=== PATIENT | male | born 1960 | race Caucasian/White ===

== ENCOUNTER 2017-03-07 08:02 | Inpatient (IN) | payer SELFPAY ==
[2017-03-07 08:07] VITALS: BMI 25.8
[2017-03-07] MEDS ORDERED: Morphine 4 MG/ML VIAL ONE (08:10)
--- NOTE | 2017-03-07 08:13 | C.PDOC ---
History Of Present Illness Patient BIBA for suddeon onset of crushing, substernal chest pain that began approx 1 hour [employer]. Patient given ASA PO and 1 SL nitro in the field. EKG done in the field shows ST elevations in II, III, aVL, V3-V6. Patient is a smoker, but has no physician and denies h/o HTN, hyperlipidemia, WI, DM. Time Seen by Provider: 03/07/17 08:11 Chief Complaint (Nursing): Chest Pain History Per: Patient, EMS History/Exam Limitations: language barrier (iraqi) Onset/Duration Of Symptoms: Hrs Current Symptoms Are (Timing): Still Present Severity: Moderate Quality: Pressure, Other (crushing) Associated Symptoms: Diaphoresis Past Medical History Reviewed: Historical Data, Nursing Documentation, Vital Signs Vital Signs: Last Vital Signs Temp 97.2 F L 03/09/17 16:30 Pulse 83 03/09/17 02:00 Resp 26 H 03/09/17 16:31 BP 149/91 H 03/09/17 02:00 Pulse Ox 96 03/09/17 16:31 - Medical History PMH: No Chronic Diseases Family History: States: No Known Family Hx Review Of Systems Except As Marked, All Systems Reviewed And Found Negative. Constitutional: Negative for: Fever, Chills Cardiovascular: Positive for: Chest Pain. Negative for: Palpitations, Orthopnea Respiratory: Negative for: Cough, Shortness of Breath Gastrointestinal: Negative for: Nausea, Vomiting, Abdominal Pain Physical Exam - Physical Exam Appears: Non-toxic, In Acute Distress (in moderate pain), Other (diaphoretic) Eye(s): bilateral: Normal Inspection Oral Mucosa: Moist Chest: Symmetrical Cardiovascular: Rhythm Regular Respiratory: Normal Breath Sounds, No Rales, No Rhonchi, No Wheezing Gastrointestinal/Abdominal: Normal Exam, Bowel Sounds, Soft, No Tenderness Extremity: Normal ROM, No Pedal Edema, No Calf Tenderness Pulses: Left Dorsalis Pedis: Normal, Right Dorsalis Pedis: Normal Neurological/Psych: Oriented x3 ED Course And Treatment - Laboratory Results Result Diagrams: 03/09/17 06:15 03/09/17 06:15 ECG: Interpreted By Me, Viewed By Me (sinus bradycardia 57 bpm, normal axis, ST elevations in V2-V4) ECG Interpretation: Abnormal O2 Sat by Pulse Oximetry: 100 (RA) Pulse Ox Interpretation: Normal Progress Note: Code heart called when EKG arrived via [facility]. Spoke with Dr. Estrella, he is en route to hospital now, agrees with code heart activation. Patient given Brilinta 180mg PO, Heparin 5000 units bolus, IV morphine for pain. - Physician Consult Information Physician Contacted: Eber Trevizo Disposition - Disposition Disposition: HOSPITALIZED Disposition Time: 08:10 Condition: GUARDED - Clinical Impression Clinical Impression: Acute ST-elevation myocardial infarction Decision To Admit - Pt Status Changed To: Hospital Disposition Of: Inpatient - Admit Certification Admit to Inpatient:: After my assessment, the patient will require hospitalization for at least two midnights. This is because of the severity of symptoms shown, intensity of services needed, and/or the medical risk in this patient being treated as an outpatient. - InPatient: Physician Admission Certification: I certify that this patient requires 2 or more midnights of care for the following reason:: see notes - . Bed Request Type: ICU Admitting Physician: Eber Trevizo Patient Diagnosis: Acute ST-elevation myocardial infarction
[2017-03-07] MEDS ORDERED: Midazolam 2 MG/2 ML VIAL ONE ×2 (08:19→09:01)
[2017-03-07] MEDS ORDERED: Iodixanol 320 MG/ML 200 ML BOTTLE IV ONE (08:20)
[2017-03-07] MEDS ORDERED: Iodixanol 320 MG/ML 100 ML BOTTLE IV ONE ×2 (08:20→08:44)
[2017-03-07 08:27] LABS: BASO % 0.5 % (0.0-2.0); EOS # 0.1 K/uL (0.0-0.7); EOS % 1.8 % (0.0-4.0); HEMATOCRIT 46.5 % (35.0-51.0); LYMPH # 1.6 K/uL (1.0-4.3); LYMPH % 20.9 % (20.0-40.0); MEAN CELL VOLUME 93.5 fL (80.0-94.0); MEAN CORPUSCULAR HEMOGLOBIN 31.7 pg (27.0-31.0); MEAN CORPUSCULAR HGB CONC 33.9 g/dL (33.0-37.0); MEAN PLATELET VOLUME 7.5 fL (7.2-11.7); MONO # 0.4 K/uL (0.0-0.8); MONO % 5.4 % (0.0-10.0); RED CELL DISTRIBUTION WIDTH 13.4 % (11.5-14.5); WHITE BLOOD COUNT 7.5 K/uL (4.8-10.8)
[2017-03-07] MEDS ORDERED: EPINEPHrine 1 mg/ml (1:1000) Inj ONE (08:27)
[2017-03-07 08:30] LABS: CHLORIDE 106 mmol/L (98-107); POTASSIUM 4.2 mmol/L (3.6-5.2); SODIUM 142 mmol/L (132-148)
[2017-03-07] MEDS ORDERED: Phenylephrine 10 mg/ml Inj ONE (08:31)
[2017-03-07 08:32] LABS: BILIRUBIN,TOTAL 0.8 mg/dL (0.2-1.3); CARBON DIOXIDE 21 mmol/L (22-30); GFR AFRICAN-AMERICAN > 60
[2017-03-07 08:33] LABS: ALB/GLOB RATIO 1.5 (1.0-2.1); ALKALINE PHOSPHATASE 108 U/L (38-126); ALT/SGPT 111 U/L (21-72); AST/SGOT 63 U/L (17-59); BLOOD UREA NITROGEN 17 mg/dL (9-20); GLUCOSE,RANDOM 189 mg/dL (75-110); TOTAL PROTEIN 7.7 g/dL (6.3-8.3)
[2017-03-07 08:34] LABS: INR 0.9
[2017-03-07] MEDS ORDERED: Heparin25000 units/250ml 1/2NS 25,000 UNITS/250 ML BAG IV ONE (08:40)
[2017-03-07] MEDS ORDERED: Sodium Chloride 0.9% 1,000 ML IV SCH (09:30)
--- NOTE | 2017-03-07 09:59 | CP.PCM.CON ---
<Beatris Franco - Last Filed: 03/07/17 13:58> History of Present Illness - History of Present Illness History of Present Illness: Critical Care Note HPI: 56M with no significant PMHx presented to the ED as a CODE Heart. 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 He has not been feeling well for the past 2-3 days. Pt was febrile, fatigued but did not go to the ED or see a PMD. This morning he reported chest pain (1 hour prior to arrival) to his helper and the ambulance was called. He was given ASA and 1 sublingual nitro in the field. EKG showed ST elevations in II, III, aVL, V3-V6. Patient went for cardiac cath showing LAD occlusion requiring 3 stents. Patient admitted to the ICU for close monitoring. PMHx: Denied PSHx: Denied Meds: Denied All: Seasonal SHx: Admits to smoking heavily, social alcohol use, no ilicit drug use FHx: Unremarkable PMD: Unknown Past Patient History - Past Social History Smoking Status: Current Some Days Smoker - PSYCHIATRIC Hx Substance Use: No - SURGICAL HISTORY Hx Surgeries: No - ANESTHESIA Hx Anesthesia: No Meds Allergies/Adverse Reactions: Allergies Allergy/AdvReac Type Severity Reaction Status Date / Time seasonal Allergy CONGESTION Uncoded 03/07/17 08:17 - Medications Medications: Current Medications Aspirin (Ecotrin) 81 mg PO DAILY [facility] Nitroglycerin/Dextrose (Nitroglycerin 50 Mg/250 Ml D5w) 50 mg in 250 mls @ 1.5 mls/hr IV .Q24H RIA; 5 MCG/MIN PRN Reason: Protocol Sodium Chloride (Sodium Chloride 0.9%) 1,000 mls @ 100 mls/hr IV .Q10H RIA Stop: 03/07/17 15:31 Lisinopril (Zestril) 5 mg PO DAILY RIA Metoprolol Tartrate (Lopressor) 25 mg PO BID RIA Rosuvastatin Calcium (Crestor) 10 mg PO HS RIA Ticagrelor (Brilinta) 90 mg PO BID RIA Physical Exam - Constitutional Appears: No Acute Distress - Head Exam Head Exam: NORMAL INSPECTION, NORMOCEPHALIC - Eye Exam Eye Exam: Normal appearance Pupil Exam: NORMAL ACCOMODATION - ENT Exam ENT Exam: Mucous Membranes Moist - Respiratory Exam Respiratory Exam: Clear to Auscultation Bilateral, NORMAL BREATHING PATTERN. absent: Wheezes - Cardiovascular Exam Cardiovascular Exam: REGULAR RHYTHM, RRR, +S1, +S2 - GI/Abdominal Exam GI & Abdominal Exam: Normal Bowel Sounds, Soft. absent: Distended, Tenderness - Extremities Exam Extremities exam: Positive for: normal inspection, pedal pulses present. Negative for: pedal edema, tenderness - Neurological Exam Neurological exam: Alert, Oriented x3 - Skin Skin Exam: Dry, Intact, Normal Color, Warm Results - Vital Signs Recent Vital Signs: Last Vital Signs Temp 97.9 F 03/07/17 08:05 Pulse 60 03/07/17 08:05 Resp 16 03/07/17 08:05 BP 189/115 H 03/07/17 08:05 Pulse Ox 100 03/07/17 08:17 - Labs Result Diagrams: 03/07/17 08:15 03/07/17 08:15 Labs: Laboratory Results - last 24 hr 03/07/17 03/07/17 03/07/17 08:15 08:15 08:15 WBC 7.5 RBC 4.97 Hgb 15.8 Hct 46.5 MCV 93.5 MCH 31.7 H MCHC 33.9 RDW 13.4 Plt Count 277 MPV 7.5 Neut % (Auto) 71.4 Lymph % (Auto) 20.9 Calloway % (Auto) 5.4 Eos % (Auto) 1.8 Baso % (Auto) 0.5 Neut # 5.3 Lymph # 1.6 Calloway # 0.4 Eos # 0.1 Baso # 0.0 PT 10.0 INR 0.9 APTT 31 Sodium 142 Potassium 4.2 Chloride 106 Carbon Dioxide 21 L Anion Gap 19 BUN 17 Creatinine 0.8 Est GFR ( Amer) > 60 Est GFR (Non-Af Amer) > 60 Random Glucose 189 H Calcium 10.0 Total Bilirubin 0.8 AST 63 H ALT 111 H Alkaline Phosphatase 108 Troponin I Total Protein 7.7 Albumin 4.6 Globulin 3.1 Albumin/Globulin Ratio 1.5 Blood Type Antibody Screen 03/07/17 03/07/17 08:15 08:15 WBC RBC Hgb Hct MCV MCH MCHC RDW Plt Count MPV Neut % (Auto) Lymph % (Auto) Calloway % (Auto) Eos % (Auto) Baso % (Auto) Neut # Lymph # Calloway # Eos # Baso # PT INR APTT Sodium Potassium Chloride Carbon Dioxide Anion Gap BUN Creatinine Est GFR ( Amer) Est GFR (Non-Af Amer) Random Glucose Calcium Total Bilirubin AST ALT Alkaline Phosphatase Troponin I 0.1290 H* Total Protein Albumin Globulin Albumin/Globulin Ratio Blood Type O POSITIVE Antibody Screen Negative Assessment & Plan - Assessment and Plan (Free Text) Assessment: 56 M with PMHx of presented to the ED, as CODE HEART with ST elevations in II, III, aVL, V3-V6 on EKG. Cardiac Cath for STEMI. Plan: Chest pain * STEMI * EKG: showed ST elevations in II, III, aVL, V3-V6. 1st troponin 52.2. Patient went for cardiac cath showing LAD occlusion requiring 3 stents. * ASA 81mg PO daily, Brilinta 90 mg PO BID, Crestor 10mg PO QHS, Nitro Drip, NS @ 100cc/hr * F/U ECHO * F/U ANA x2 * F/U HgA1C, lipid panel, TSH, T4 HTN * Started Lopressor 25mg PO BID, Hydralazine 25mg PO TID, Lisinopril 10mg PO daily Prophylactic Measures * GI PPX: Pepcid 20mg PO daily * DVT PPX: Heparin 5000 Q8H * Heart Healthy Diet DW Joan Antoine DO, PGY-1 <Deepak Mobley S - Last Filed: 03/07/17 18:32> Meds - Medications Medications: Current Medications Aspirin (Ecotrin) 81 mg PO DAILY [facility] Famotidine (Pepcid) 20 mg PO DAILY [facility] Heparin Sodium (Porcine) (Heparin) 5,000 units SC Q8 [facility] Hydralazine HCl (Apresoline) 25 mg PO TID [facility] Last Admin: 03/07/17 18:05 Dose: 25 mg Nitroglycerin/Dextrose (Nitroglycerin 50 Mg/250 Ml D5w) 50 mg in 250 mls @ 1.5 mls/hr IV .Q24H RIA; 5 MCG/MIN PRN Reason: Protocol Lisinopril (Zestril) 10 mg PO DAILY [facility] Metoprolol Tartrate (Lopressor) 25 mg PO BID [facility] Last Admin: 03/07/17 18:05 Dose: 25 mg Rosuvastatin Calcium (Crestor) 10 mg PO HS [facility] Ticagrelor (Brilinta) 90 mg PO BID RIA Results - Vital Signs Recent Vital Signs: Last Vital Signs Temp 97.5 F L 03/07/17 16:00 Pulse 152 H 03/07/17 16:00 Resp 18 03/07/17 16:00 BP 169/102 H 03/07/17 18:05 Pulse Ox 97 03/07/17 16:00 - Labs Result Diagrams: 03/07/17 08:15 03/07/17 08:15 Labs: Laboratory Results - last 24 hr 03/07/17 03/07/17 03/07/17 08:15 08:15 08:15 WBC 7.5 RBC 4.97 Hgb 15.8 Hct 46.5 MCV 93.5 MCH 31.7 H MCHC 33.9 RDW 13.4 Plt Count 277 MPV 7.5 Neut % (Auto) 71.4 Lymph % (Auto) 20.9 Calloway % (Auto) 5.4 Eos % (Auto) 1.8 Baso % (Auto) 0.5 Neut # 5.3 Lymph # 1.6 Calloway # 0.4 Eos # 0.1 Baso # 0.0 PT 10.0 INR 0.9 APTT 31 Sodium 142 Potassium 4.2 Chloride 106 Carbon Dioxide 21 L Anion Gap 19 BUN 17 Creatinine 0.8 Est GFR ( Amer) > 60 Est GFR (Non-Af Amer) > 60 Random Glucose 189 H Calcium 10.0 Total Bilirubin 0.8 AST 63 H ALT 111 H Alkaline Phosphatase 108 Troponin I Total Protein 7.7 Albumin 4.6 Globulin 3.1 Albumin/Globulin Ratio 1.5 Blood Type Antibody Screen 03/07/17 03/07/17 03/07/17 08:15 08:15 10:25 WBC RBC Hgb Hct MCV MCH MCHC RDW Plt Count MPV Neut % (Auto) Lymph % (Auto) Calloway % (Auto) Eos % (Auto) Baso % (Auto) Neut # Lymph # Calloway # Eos # Baso # PT INR APTT Sodium Potassium Chloride Carbon Dioxide Anion Gap BUN Creatinine Est GFR ( Amer) Est GFR (Non-Af Amer) Random Glucose Calcium Total Bilirubin AST ALT Alkaline Phosphatase Troponin I 0.1290 H* 52.2000 H* Total Protein Albumin Globulin Albumin/Globulin Ratio Blood Type O POSITIVE Antibody Screen Negative Attending/Attestation - Attestation I have personally seen and examined this patient.: Yes I have fully participated in the care of the patient.: Yes I have reviewed all pertinent clinical information: Yes Notes (Text): 03/07/17 18:27 Patient seen and examined 56-year-old male presented with ST elevation PA, cardiac cath showing LAD occlusion requiring 3 stents. Patient admitted to the ICU for close monitoring. Continue the BRILINTA, aspirin, Crestor, on nitro drip and started on Lopressor and hydralazine for hypertension
[2017-03-07] MEDS: Nitroglycerin 50mg in D5W 50 MG/250 ML BOTTLE IV SCH ×2 (10:00→20:00)
--- NOTE | 2017-03-07 13:10 | CARD ---
APPROVED REPORT EXAM: Two-dimensional and M-mode echocardiogram with Doppler and color Doppler. Other Information Quality : ExcellentGoodRhythm : NSR INDICATION CVA/TIA RISK FACTORS Diabetes M-Mode DIMENSIONS RVDd1.44 (2.1-3.2cm)Left Atrium (MM)3.12 (2.5-4.0cm) IVSd1.02 (0.7-1.1cm)Aortic Root3.79 (2.2-3.7cm) LVDd4.45 (4.0-5.6cm)Aortic Cusp Exc.1.87 (1.5-2.0cm) PWd0.90 (0.7-1.1cm)FS (%) 25 % LVDs3.36 (2.0-3.8cm)LVEF (%)49 (>50%) Aortic Valve AoV Peak Vgpdtjhu028.8cm/Sasha Peak GR.13mmHg Mitral Valve MV E Fafacots56.1cm/sMV A Mwamsavs51.8cm/sE/A ratio1.4 TDI E/Lateral E'0.0E/Medial E'0.0 Tricuspid Valve TR Peak Fayqiijr140gp/sTR Peak [id number] <Conclusion> normal size la,lv & ra rv. lvef of about 50%. normal diastolic filling. normal aortic,mitral,tv & pv. trace mr,pi & mild tr with normal pulmonary systolic pressures of 30 mm of hg. no pericardial effusion. normal size aortic root.
--- NOTE | 2017-03-07 14:23 | RAD ---
HISTORY: Acute STEMI COMPARISON: None available. TECHNIQUE: Chest, one view. FINDINGS: Examination limited by habitus. External defibrillator pad projects over the left upper quadrant. LUNGS: Mild pulmonary venous congestion. Please note that chest x-ray has limited sensitivity for the detection of pulmonary masses. PLEURA: No significant pleural effusion identified. No definite pneumothorax . CARDIOVASCULAR: Cardiomegaly. OSSEOUS STRUCTURES: No acute osseous abnormality identified. VISUALIZED UPPER ABDOMEN: Unremarkable. OTHER FINDINGS: None. IMPRESSION: Cardiomegaly. Mild pulmonary venous congestion.
[2017-03-07] MEDS ORDERED: Morphine 4 MG/ML VIAL IV ONE (19:48)
[2017-03-08] MEDS: Nitroglycerin 50mg in D5W 50 MG/250 ML BOTTLE IV SCH ×3 (01:02→10:48)
[2017-03-08 06:42] LABS: BASO % 0.4 % (0.0-2.0); CHLORIDE 103 mmol/L (98-107); EOS # 0.1 K/uL (0.0-0.7); EOS % 0.9 % (0.0-4.0); HEMATOCRIT 41.6 % (35.0-51.0); LYMPH # 1.8 K/uL (1.0-4.3); LYMPH % 15.9 % (20.0-40.0); MEAN CELL VOLUME 95.7 fL (80.0-94.0); MEAN CORPUSCULAR HEMOGLOBIN 31.8 pg (27.0-31.0); MEAN CORPUSCULAR HGB CONC 33.3 g/dL (33.0-37.0); MEAN PLATELET VOLUME 7.5 fL (7.2-11.7); MONO # 0.8 K/uL (0.0-0.8); MONO % 7.5 % (0.0-10.0); POTASSIUM 3.8 mmol/L (3.6-5.2); RED CELL DISTRIBUTION WIDTH 13.9 % (11.5-14.5); SODIUM 137 mmol/L (132-148); WHITE BLOOD COUNT 11.3 K/uL (4.8-10.8)
[2017-03-08 06:44] LABS: ALB/GLOB RATIO 1.3 (1.0-2.1); AST/SGOT 291 U/L (17-59); BLOOD UREA NITROGEN 15 mg/dL (9-20); CARBON DIOXIDE 24 mmol/L (22-30); CHOLESTEROL 216 mg/dL (0-199); GFR AFRICAN-AMERICAN > 60; TOTAL PROTEIN 6.3 g/dL (6.3-8.3)
[2017-03-08 06:45] LABS: ALKALINE PHOSPHATASE 70 U/L (38-126); ALT/SGPT 110 U/L (21-72); CALCIUM 8.3 mg/dl (8.6-10.4); GLUCOSE,RANDOM 132 mg/dL (75-110); MAGNESIUM 1.7 mg/dL (1.6-2.3); PHOSPHOROUS 3.2 mg/dL (2.5-4.5)
--- NOTE | 2017-03-08 08:46 | CP.CCUPN ---
Addendum entered and electronically signed by Beatris Franco DO 03/08/17 13:00 : NITRO DRIP DC Continue Metoprolol 50mg PO BID, lisinoprol 10mg PO daily. Hydralazine was DC. Patient downgraded to TELEMETRY Original Note: <Beatris Franco - Last Filed: 03/08/17 11:11> CCU Subjective - Physician Review Subjective (Free Text): Patient was seen and examined at bedside. Last night patient reported chest pain. Dr. La was called, requested nitro drip be restarted. Patient received morphine and his chest pain resolved. Patient is tolerating diet, currently on Lopressor, hydrazaline, and nitro drip. Reports no chest pain. CCU Objective - Vital Signs / Intake & Output Vital Signs (Last 4 hours): Vital Signs Pulse Resp BP Pulse Ox 03/08/17 07:00 62 16 143/86 95 03/08/17 06:00 70 19 134/80 96 03/08/17 05:17 62 26 H 115/72 96 03/08/17 05:00 67 17 126/86 96 Intake and Output (Last 8hrs): Intake & Output 03/07/17 03/08/17 03/08/17 22:59 06:59 14:59 Intake Total 806 1089 3 Output Total 400 600 Balance 406 489 3 Weight 202 lb 4 oz Intake: IV 500 Intake, IV Amount 436 39 3 Left Wrist 136 39 3 Right Antecubital 0 tight wrist 300 Oral 370 550 Output: Urine 400 600 Urine, Voided 400 600 Other: # Bowel Movements 0 - Physical Exam Head: Positive for: Atraumatic, Normocephalic Pupils: Positive for: PERRL Extroacular Muscles: Positive for: EOMI Mouth: Positive for: Moist Mucous Membranes Respiratory/Chest: Positive for: Clear to Auscultation Cardiovascular: Positive for: Regular Rate and Rhythm, Normal S1, S2 Abdomen: Positive for: Normal Bowel Sounds. Negative for: Tenderness, Distention Upper Extremity: Positive for: Normal Inspection, NORMAL PULSES. Negative for: Cyanosis, Edema Lower Extremity: Positive for: Normal Inspection, NORMAL PULSES. Negative for: Edema, CALF TENDERNESS Neurological: Positive for: GCS=15, CN II-XII Intact Skin: Positive for: Warm, Dry, Normal Color Psychiatric: Positive for: Alert, Oriented x 3 - Medications Active Medications: Active Medications Generic Name Dose Route Start Last Admin Trade Name Freq PRN Reason Stop Dose Admin Acetaminophen 650 mg 03/07/17 21:09 03/08/17 05:16 Tylenol 325mg Tab PO 650 mg Q6 PRN Administration Headache Aspirin 81 mg 03/08/17 10:00 Ecotrin PO DAILY [facility] Famotidine 20 mg 03/08/17 10:00 Pepcid PO DAILY [facility] Heparin Sodium (Porcine) 5,000 units 03/08/17 10:00 Heparin SC Q8 [facility] Hydralazine HCl 25 mg 03/07/17 14:00 03/07/17 18:05 Apresoline PO 25 mg TID RIA Administration Nitroglycerin/Dextrose 50 mg in 250 mls @ 1.5 mls/hr 03/07/17 08:45 03/08/17 05: Nitroglycerin 50 Mg/250 Ml D5w IV 10 mcg/min .Q24H RIA 3 mls/hr Protocol Administration 5 MCG/MIN Lisinopril 10 mg 03/08/17 10:00 Zestril PO DAILY [facility] Metoprolol Tartrate 25 mg 03/07/17 10:00 03/07/17 18:05 Lopressor PO 25 mg BID RIA Administration Rosuvastatin Calcium 10 mg 03/07/17 22:00 03/07/17 22:01 Crestor PO 10 mg HS RIA Administration Ticagrelor 90 mg 03/08/17 10:00 Brilinta PO BID [facility] - Patient Studies Lab Studies: Lab Studies 03/08/17 03/08/17 03/08/17 Range/Units 06:24 06:24 06:24 WBC 11.3 H D (4.8-10.8) K/uL RBC 4.35 L (4.40-5.90) Mil/uL Hgb 13.8 D (12.0-18.0) g/dL Hct 41.6 (35.0-51.0) % MCV 95.7 H D (80.0-94.0) fL MCH 31.8 H (27.0-31.0) pg MCHC 33.3 (33.0-37.0) g/dL RDW 13.9 (11.5-14.5) % Plt Count 232 (130-400) K/uL MPV 7.5 (7.2-11.7) fL Neut % (Auto) 75.3 H (50.0-75.0) % Lymph % (Auto) 15.9 L (20.0-40.0) % Daggett % (Auto) 7.5 (0.0-10.0) % Eos % (Auto) 0.9 (0.0-4.0) % Baso % (Auto) 0.4 (0.0-2.0) % Neut # 8.5 H (1.8-7.0) K/uL Lymph # 1.8 (1.0-4.3) K/uL Daggett # 0.8 (0.0-0.8) K/uL Eos # 0.1 (0.0-0.7) K/uL Baso # 0.0 (0.0-0.2) K/uL PT (9.7-12.2) SECONDS INR APTT (21-34) SECONDS Sodium 137 (132-148) mmol/L Potassium 3.8 (3.6-5.2) mmol/L Chloride 103 (98-107) mmol/L Carbon Dioxide 24 (22-30) mmol/L Anion Gap 13 (10-20) BUN 15 (9-20) mg/dL Creatinine 0.8 (0.8-1.5) MG/DL Est GFR ( Amer) > 60 Est GFR (Non-Af Amer) > 60 Random Glucose 132 H (75-110) mg/dL Hemoglobin A1c (4.2-6.5) % Calcium 8.3 L (8.6-10.4) mg/dl Phosphorus 3.2 (2.5-4.5) mg/dL Magnesium 1.7 (1.6-2.3) mg/dL Total Bilirubin 1.0 (0.2-1.3) mg/dL AST 291 H D (17-59) U/L ALT 110 H (21-72) U/L Alkaline Phosphatase 70 (38-126) U/L Total Creatine Kinase (55-170) U/L CK-MB (Mass) (0.0-3.38) ng/mL Troponin I 45.4000 H* (0.00-0.120) ng/mL Troponin I, Quant (0.00-0.120) ng/mL Total Protein 6.3 (6.3-8.3) g/dL Albumin 3.6 (3.5-5.0) g/dL Globulin 2.7 (2.2-3.9) gm/dL Albumin/Globulin Ratio 1.3 (1.0-2.1) Triglycerides 184 H (0-149) mg/dL Cholesterol 216 H (0-199) mg/dL LDL Cholesterol Direct 149 H (0-129) mg/dL HDL Cholesterol 43 (30-70) mg/dL Free T4 0.84 (0.78-2.19) ng/dL Blood Type Antibody Screen 03/08/17 03/07/17 03/07/17 Range/Units 06:24 18:24 10:25 WBC (4.8-10.8) K/uL RBC (4.40-5.90) Mil/uL Hgb (12.0-18.0) g/dL Hct (35.0-51.0) % MCV (80.0-94.0) fL MCH (27.0-31.0) pg MCHC (33.0-37.0) g/dL RDW (11.5-14.5) % Plt Count (130-400) K/uL MPV (7.2-11.7) fL Neut % (Auto) (50.0-75.0) % Lymph % (Auto) (20.0-40.0) % Daggett % (Auto) (0.0-10.0) % Eos % (Auto) (0.0-4.0) % Baso % (Auto) (0.0-2.0) % Neut # (1.8-7.0) K/uL Lymph # (1.0-4.3) K/uL Daggett # (0.0-0.8) K/uL Eos # (0.0-0.7) K/uL Baso # (0.0-0.2) K/uL PT (9.7-12.2) SECONDS INR APTT (21-34) SECONDS Sodium (132-148) mmol/L Potassium (3.6-5.2) mmol/L Chloride (98-107) mmol/L Carbon Dioxide (22-30) mmol/L Anion Gap (10-20) BUN (9-20) mg/dL Creatinine (0.8-1.5) MG/DL Est GFR ( Amer) Est GFR (Non-Af Amer) Random Glucose (75-110) mg/dL Hemoglobin A1c 5.4 (4.2-6.5) % Calcium (8.6-10.4) mg/dl Phosphorus (2.5-4.5) mg/dL Magnesium (1.6-2.3) mg/dL Total Bilirubin (0.2-1.3) mg/dL AST (17-59) U/L ALT (21-72) U/L Alkaline Phosphatase (38-126) U/L Total Creatine Kinase 5055 H (55-170) U/L CK-MB (Mass) 226 H (0.0-3.38) ng/mL Troponin I 52.2000 H* (0.00-0.120) ng/mL Troponin I, Quant 131.0000 H* (0.00-0.120) ng/mL Total Protein (6.3-8.3) g/dL Albumin (3.5-5.0) g/dL Globulin (2.2-3.9) gm/dL Albumin/Globulin Ratio (1.0-2.1) Triglycerides (0-149) mg/dL Cholesterol (0-199) mg/dL LDL Cholesterol Direct (0-129) mg/dL HDL Cholesterol (30-70) mg/dL Free T4 (0.78-2.19) ng/dL Blood Type Antibody Screen 03/07/17 03/07/17 03/07/17 Range/Units 08:15 08:15 08:15 WBC (4.8-10.8) K/uL RBC (4.40-5.90) Mil/uL Hgb (12.0-18.0) g/dL Hct (35.0-51.0) % MCV (80.0-94.0) fL MCH (27.0-31.0) pg MCHC (33.0-37.0) g/dL RDW (11.5-14.5) % Plt Count (130-400) K/uL MPV (7.2-11.7) fL Neut % (Auto) (50.0-75.0) % Lymph % (Auto) (20.0-40.0) % Daggett % (Auto) (0.0-10.0) % Eos % (Auto) (0.0-4.0) % Baso % (Auto) (0.0-2.0) % Neut # (1.8-7.0) K/uL Lymph # (1.0-4.3) K/uL Daggett # (0.0-0.8) K/uL Eos # (0.0-0.7) K/uL Baso # (0.0-0.2) K/uL PT 10.0 (9.7-12.2) SECONDS INR 0.9 APTT 31 (21-34) SECONDS Sodium (132-148) mmol/L Potassium (3.6-5.2) mmol/L Chloride (98-107) mmol/L Carbon Dioxide (22-30) mmol/L Anion Gap (10-20) BUN (9-20) mg/dL Creatinine (0.8-1.5) MG/DL Est GFR ( Amer) Est GFR (Non-Af Amer) Random Glucose (75-110) mg/dL Hemoglobin A1c (4.2-6.5) % Calcium (8.6-10.4) mg/dl Phosphorus (2.5-4.5) mg/dL Magnesium (1.6-2.3) mg/dL Total Bilirubin (0.2-1.3) mg/dL AST (17-59) U/L ALT (21-72) U/L Alkaline Phosphatase (38-126) U/L Total Creatine Kinase (55-170) U/L CK-MB (Mass) (0.0-3.38) ng/mL Troponin I 0.1290 H* (0.00-0.120) ng/mL Troponin I, Quant (0.00-0.120) ng/mL Total Protein (6.3-8.3) g/dL Albumin (3.5-5.0) g/dL Globulin (2.2-3.9) gm/dL Albumin/Globulin Ratio (1.0-2.1) Triglycerides (0-149) mg/dL Cholesterol (0-199) mg/dL LDL Cholesterol Direct (0-129) mg/dL HDL Cholesterol (30-70) mg/dL Free T4 (0.78-2.19) ng/dL Blood Type O POSITIVE Antibody Screen Negative Laboratory Results - last 24 hr 03/07/17 03/07/17 03/07/17 08:15 08:15 08:15 WBC RBC Hgb Hct MCV MCH MCHC RDW Plt Count MPV Neut % (Auto) Lymph % (Auto) Daggett % (Auto) Eos % (Auto) Baso % (Auto) Neut # Lymph # Daggett # Eos # Baso # PT 10.0 INR 0.9 APTT 31 Sodium Potassium Chloride Carbon Dioxide Anion Gap BUN Creatinine Est GFR ( Amer) Est GFR (Non-Af Amer) Random Glucose Hemoglobin A1c Calcium Phosphorus Magnesium Total Bilirubin AST ALT Alkaline Phosphatase Total Creatine Kinase CK-MB (Mass) Troponin I 0.1290 H* Troponin I, Quant Total Protein Albumin Globulin Albumin/Globulin Ratio Triglycerides Cholesterol LDL Cholesterol Direct HDL Cholesterol Free T4 Blood Type O POSITIVE Antibody Screen Negative 03/07/17 03/07/17 03/08/17 10:25 18:24 06:24 WBC RBC Hgb Hct MCV MCH MCHC RDW Plt Count MPV Neut % (Auto) Lymph % (Auto) Daggett % (Auto) Eos % (Auto) Baso % (Auto) Neut # Lymph # Daggett # Eos # Baso # PT INR APTT Sodium Potassium Chloride Carbon Dioxide Anion Gap BUN Creatinine Est GFR ( Amer) Est GFR (Non-Af Amer) Random Glucose Hemoglobin A1c 5.4 Calcium Phosphorus Magnesium Total Bilirubin AST ALT Alkaline Phosphatase Total Creatine Kinase 5055 H CK-MB (Mass) 226 H Troponin I 52.2000 H* Troponin I, Quant 131.0000 H* Total Protein Albumin Globulin Albumin/Globulin Ratio Triglycerides Cholesterol LDL Cholesterol Direct HDL Cholesterol Free T4 Blood Type Antibody Screen 03/08/17 03/08/17 03/08/17 06:24 06:24 06:24 WBC 11.3 H D RBC 4.35 L Hgb 13.8 D Hct 41.6 MCV 95.7 H D MCH 31.8 H MCHC 33.3 RDW 13.9 Plt Count 232 MPV 7.5 Neut % (Auto) 75.3 H Lymph % (Auto) 15.9 L Daggett % (Auto) 7.5 Eos % (Auto) 0.9 Baso % (Auto) 0.4 Neut # 8.5 H Lymph # 1.8 Daggett # 0.8 Eos # 0.1 Baso # 0.0 PT INR APTT Sodium 137 Potassium 3.8 Chloride 103 Carbon Dioxide 24 Anion Gap 13 BUN 15 Creatinine 0.8 Est GFR ( Amer) > 60 Est GFR (Non-Af Amer) > 60 Random Glucose 132 H Hemoglobin A1c Calcium 8.3 L Phosphorus 3.2 Magnesium 1.7 Total Bilirubin 1.0 AST 291 H D ALT 110 H Alkaline Phosphatase 70 Total Creatine Kinase CK-MB (Mass) Troponin I 45.4000 H* Troponin I, Quant Total Protein 6.3 Albumin 3.6 Globulin 2.7 Albumin/Globulin Ratio 1.3 Triglycerides 184 H Cholesterol 216 H LDL Cholesterol Direct 149 H HDL Cholesterol 43 Free T4 0.84 Blood Type Antibody Screen EKG/Cardiology Studies: Cardiology / EKG Studies 03/07/17 09:31 EKG [ELECTROCARDIOGRAM] Q8H Comment: With every troponin q8 x3 Mode Of Transportation: BED Reason For Exam: Acute STEMI 03/07/17 17:31 EKG [ELECTROCARDIOGRAM] Q8H Comment: With every troponin q8 x3 Mode Of Transportation: BED Reason For Exam: Acute STEMI 03/08/17 01:31 EKG [ELECTROCARDIOGRAM] Q8H Comment: With every troponin q8 x3 Mode Of Transportation: BED Reason For Exam: Acute STEMI Fingerstick Blood Sugar Results: 179 Critical Care Progress Note - Nutrition Nutrition: Nutrition Category Date Time Status Heart Healthy Diet [DIET] Diets 03/07/17 Dinner Active Assessment/Plan - Assessment and Plan (Free Text) Assessment: 56 M with PMHx of presented to the ED, as CODE HEART with ST elevations in II, III, aVL, V3-V6 on EKG. Cardiac Cath for STEMI. S/P 3 GENA stents in LAD. POD #1 Plan: Chest pain * STEMI * EKG: showed ST elevations in II, III, aVL, V3-V6. 1st troponin 52.2. Patient went for cardiac cath showing LAD occlusion requiring 3 GENA. * ASA 81mg PO daily, Brilinta 90 mg PO BID, Crestor 10mg PO QHS, Nitro Drip, NS @ 100cc/hr * ANA: 52.2, 131, 45 * HgA1C: 5.4 , lipid panel: Tri 184, Cholesterol 216, and LDL 149, TSH, T4 - WNL * ECHO: LVEF 50%, trace MR HTN * Started Lopressor 25mg PO BID, Hydralazine 25mg PO TID, and Nitro drip; Lisinopril 10mg PO daily - will hold Nitro drip Prophylactic Measures * GI PPX: Pepcid 20mg PO daily * DVT PPX: Heparin 5000 Q8H * Heart Healthy Diet DW Dr. Patten, Joan HAYNES, PGY-1 <Sandor Beaver - Last Filed: 03/08/17 13:56> CCU Objective - Vital Signs / Intake & Output Vital Signs (Last 4 hours): Vital Signs Temp Pulse Resp BP Pulse Ox 03/08/17 12:00 97.6 F 74 19 143/93 H 96 03/08/17 11:00 71 19 142/76 97 03/08/17 10:00 62 18 144/87 96 03/08/17 09:47 128/80 Intake and Output (Last 8hrs): Intake & Output 03/07/17 03/08/17 03/08/17 22:59 06:59 14:59 Intake Total 806 1089 214 Output Total 400 600 701 Balance 406 489 -487 Weight 202 lb 4 oz Intake: IV 500 50 Intake, IV Amount 436 39 9 Left Wrist 136 39 9 Right Antecubital 0 tight wrist 300 Oral 370 550 155 Output: Urine 400 600 700 Urine, Voided 400 600 700 Stool 1 Other: # Bowel Movements 0 - Medications Active Medications: Active Medications Generic Name Dose Route Start Last Admin Trade Name Freq PRN Reason Stop Dose Admin Acetaminophen 650 mg 03/07/17 21:09 03/08/17 05:16 Tylenol 325mg Tab PO 650 mg Q6 PRN Administration Headache Aspirin 81 mg 03/08/17 10:00 03/08/17 09:47 Ecotrin PO 81 mg DAILY RIA Administration Famotidine 20 mg 03/08/17 10:00 03/08/17 09:47 Pepcid PO 20 mg DAILY RIA Administration Heparin Sodium (Porcine) 5,000 units 03/08/17 10:00 03/08/17 09:48 Heparin SC 5,000 units Q8 RIA Administration Lisinopril 10 mg 03/09/17 10:00 Zestril PO DAILY RIA Metoprolol Tartrate 50 mg 03/08/17 18:00 Lopressor PO BID RIA Rosuvastatin Calcium 10 mg 03/07/17 22:00 03/07/17 22:01 Crestor PO 10 mg HS RIA Administration Ticagrelor 90 mg 03/08/17 10:00 03/08/17 09:47 Brilinta PO 90 mg BID RIA Administration - Patient Studies Lab Studies: Microbiology Studies 03/07/17 Unknown MRSA Culture (Admit) - Final Naris MRSA NOT DETECTED Lab Studies 03/08/17 03/08/17 03/08/17 Range/Units 06:24 06:24 06:24 WBC 11.3 H D (4.8-10.8) K/uL RBC 4.35 L (4.40-5.90) Mil/uL Hgb 13.8 D (12.0-18.0) g/dL Hct 41.6 (35.0-51.0) % MCV 95.7 H D (80.0-94.0) fL MCH 31.8 H (27.0-31.0) pg MCHC 33.3 (33.0-37.0) g/dL RDW 13.9 (11.5-14.5) % Plt Count 232 (130-400) K/uL MPV 7.5 (7.2-11.7) fL Neut % (Auto) 75.3 H (50.0-75.0) % Lymph % (Auto) 15.9 L (20.0-40.0) % Daggett % (Auto) 7.5 (0.0-10.0) % Eos % (Auto) 0.9 (0.0-4.0) % Baso % (Auto) 0.4 (0.0-2.0) % Neut # 8.5 H (1.8-7.0) K/uL Lymph # 1.8 (1.0-4.3) K/uL Daggett # 0.8 (0.0-0.8) K/uL Eos # 0.1 (0.0-0.7) K/uL Baso # 0.0 (0.0-0.2) K/uL Sodium 137 (132-148) mmol/L Potassium 3.8 (3.6-5.2) mmol/L Chloride 103 (98-107) mmol/L Carbon Dioxide 24 (22-30) mmol/L Anion Gap 13 (10-20) BUN 15 (9-20) mg/dL Creatinine 0.8 (0.8-1.5) MG/DL Est GFR ( Amer) > 60 Est GFR (Non-Af Amer) > 60 Random Glucose 132 H (75-110) mg/dL Hemoglobin A1c (4.2-6.5) % Calcium 8.3 L (8.6-10.4) mg/dl Phosphorus 3.2 (2.5-4.5) mg/dL Magnesium 1.7 (1.6-2.3) mg/dL Total Bilirubin 1.0 (0.2-1.3) mg/dL AST 291 H D (17-59) U/L ALT 110 H (21-72) U/L Alkaline Phosphatase 70 (38-126) U/L Total Creatine Kinase (55-170) U/L CK-MB (Mass) (0.0-3.38) ng/mL Troponin I 45.4000 H* (0.00-0.120) ng/mL Troponin I, Quant (0.00-0.120) ng/mL Total Protein 6.3 (6.3-8.3) g/dL Albumin 3.6 (3.5-5.0) g/dL Globulin 2.7 (2.2-3.9) gm/dL Albumin/Globulin Ratio 1.3 (1.0-2.1) Triglycerides 184 H (0-149) mg/dL Cholesterol 216 H (0-199) mg/dL LDL Cholesterol Direct 149 H (0-129) mg/dL HDL Cholesterol 43 (30-70) mg/dL Free T4 0.84 (0.78-2.19) ng/dL 03/08/17 03/07/17 Range/Units 06:24 18:24 WBC (4.8-10.8) K/uL RBC (4.40-5.90) Mil/uL Hgb (12.0-18.0) g/dL Hct (35.0-51.0) % MCV (80.0-94.0) fL MCH (27.0-31.0) pg MCHC (33.0-37.0) g/dL RDW (11.5-14.5) % Plt Count (130-400) K/uL MPV (7.2-11.7) fL Neut % (Auto) (50.0-75.0) % Lymph % (Auto) (20.0-40.0) % Daggett % (Auto) (0.0-10.0) % Eos % (Auto) (0.0-4.0) % Baso % (Auto) (0.0-2.0) % Neut # (1.8-7.0) K/uL Lymph # (1.0-4.3) K/uL Daggett # (0.0-0.8) K/uL Eos # (0.0-0.7) K/uL Baso # (0.0-0.2) K/uL Sodium (132-148) mmol/L Potassium (3.6-5.2) mmol/L Chloride (98-107) mmol/L Carbon Dioxide (22-30) mmol/L Anion Gap (10-20) BUN (9-20) mg/dL Creatinine (0.8-1.5) MG/DL Est GFR ( Amer) Est GFR (Non-Af Amer) Random Glucose (75-110) mg/dL Hemoglobin A1c 5.4 (4.2-6.5) % Calcium (8.6-10.4) mg/dl Phosphorus (2.5-4.5) mg/dL Magnesium (1.6-2.3) mg/dL Total Bilirubin (0.2-1.3) mg/dL AST (17-59) U/L ALT (21-72) U/L Alkaline Phosphatase (38-126) U/L Total Creatine Kinase 5055 H (55-170) U/L CK-MB (Mass) 226 H (0.0-3.38) ng/mL Troponin I (0.00-0.120) ng/mL Troponin I, Quant 131.0000 H* (0.00-0.120) ng/mL Total Protein (6.3-8.3) g/dL Albumin (3.5-5.0) g/dL Globulin (2.2-3.9) gm/dL Albumin/Globulin Ratio (1.0-2.1) Triglycerides (0-149) mg/dL Cholesterol (0-199) mg/dL LDL Cholesterol Direct (0-129) mg/dL HDL Cholesterol (30-70) mg/dL Free T4 (0.78-2.19) ng/dL Laboratory Results - last 24 hr 03/07/17 03/08/17 03/08/17 18:24 06:24 06:24 WBC RBC Hgb Hct MCV MCH MCHC RDW Plt Count MPV Neut % (Auto) Lymph % (Auto) Daggett % (Auto) Eos % (Auto) Baso % (Auto) Neut # Lymph # Daggett # Eos # Baso # Sodium Potassium Chloride Carbon Dioxide Anion Gap BUN Creatinine Est GFR ( Amer) Est GFR (Non-Af Amer) Random Glucose Hemoglobin A1c 5.4 Calcium Phosphorus Magnesium Total Bilirubin AST ALT Alkaline Phosphatase Total Creatine Kinase 5055 H CK-MB (Mass) 226 H Troponin I Troponin I, Quant 131.0000 H* Total Protein Albumin Globulin Albumin/Globulin Ratio Triglycerides Cholesterol LDL Cholesterol Direct HDL Cholesterol Free T4 0.84 03/08/17 03/08/17 06:24 06:24 WBC 11.3 H D RBC 4.35 L Hgb 13.8 D Hct 41.6 MCV 95.7 H D MCH 31.8 H MCHC 33.3 RDW 13.9 Plt Count 232 MPV 7.5 Neut % (Auto) 75.3 H Lymph % (Auto) 15.9 L Daggett % (Auto) 7.5 Eos % (Auto) 0.9 Baso % (Auto) 0.4 Neut # 8.5 H Lymph # 1.8 Daggett # 0.8 Eos # 0.1 Baso # 0.0 Sodium 137 Potassium 3.8 Chloride 103 Carbon Dioxide 24 Anion Gap 13 BUN 15 Creatinine 0.8 Est GFR ( Amer) > 60 Est GFR (Non-Af Amer) > 60 Random Glucose 132 H Hemoglobin A1c Calcium 8.3 L Phosphorus 3.2 Magnesium 1.7 Total Bilirubin 1.0 AST 291 H D ALT 110 H Alkaline Phosphatase 70 Total Creatine Kinase CK-MB (Mass) Troponin I 45.4000 H* Troponin I, Quant Total Protein 6.3 Albumin 3.6 Globulin 2.7 Albumin/Globulin Ratio 1.3 Triglycerides 184 H Cholesterol 216 H LDL Cholesterol Direct 149 H HDL Cholesterol 43 Free T4 EKG/Cardiology Studies: Cardiology / EKG Studies 03/07/17 17:31 EKG [ELECTROCARDIOGRAM] Q8H Comment: With every troponin q8 x3 Mode Of Transportation: BED Reason For Exam: Acute STEMI 03/08/17 01:31 EKG [ELECTROCARDIOGRAM] Q8H Comment: With every troponin q8 x3 Mode Of Transportation: BED Reason For Exam: Acute STEMI Critical Care Progress Note - Nutrition Nutrition: Nutrition Category Date Time Status Heart Healthy Diet [DIET] Diets 03/07/17 Dinner Active Attending/Attestation - Attestation I have personally seen and examined this patient.: Yes I have fully participated in the care of the patient.: Yes I have reviewed all pertinent clinical information: Yes Notes (Text): 03/08/17 13:44 I have seen and examined the patient. Medical records, lab studies, and imaging were reviewed by me and a management plan was formulated on multidisciplinary rounds with resident Dr. Franco. I agree with their above documented assessment and plan. Patient clinically stable, s/p PCI with stents. Critical Care Time 35 minutes. Multi-disciplinary rounds were performed with house staff, nursing, speech therapy, respiratory therapy, pharmacy and nutrition with integrated input from the primary team/attending and other consulting services. The documented time is cumulative and includes review of patient data/exams/labs/chart review and examination of the patient on rounds and throughout the day; time is exclusive of any procedures or teaching time. 03/08/17 13:48
--- NOTE | 2017-03-08 17:33 | CP.PCM.PN ---
Subjective - Date & Time of Evaluation Date of Evaluation: 03/08/17 Time of Evaluation: 15:00 - Subjective Subjective: no angina. Objective - Vital Signs/Intake and Output Vital Signs (last 24 hours): Temp Pulse Resp BP Pulse Ox 97.7 F 71 98 H 165/100 H 97 03/08/17 16:00 03/08/17 17:00 03/08/17 17:00 03/08/17 17:00 03/08/17 17:00 Intake and Output: 03/08/17 03/08/17 06:59 18:59 Intake Total 1515 314 Output Total 600 1351 Balance 915 -1037 - Medications Medications: Current Medications Acetaminophen (Tylenol 325mg Tab) 650 mg PO Q6 PRN PRN Reason: Headache Last Admin: 03/08/17 05:16 Dose: 650 mg Aspirin (Ecotrin) 81 mg PO DAILY [facility] Last Admin: 03/08/17 09:47 Dose: 81 mg Famotidine (Pepcid) 20 mg PO DAILY [facility] Last Admin: 03/08/17 09:47 Dose: 20 mg Heparin Sodium (Porcine) (Heparin) 5,000 units SC Q8 [facility] Last Admin: 03/08/17 15:00 Dose: 5,000 units Lisinopril (Zestril) 10 mg PO DAILY [facility] Metoprolol Tartrate (Lopressor) 50 mg PO BID [facility] Last Admin: 03/08/17 17:23 Dose: 50 mg Rosuvastatin Calcium (Crestor) 10 mg PO HS [facility] Last Admin: 03/07/17 22:01 Dose: 10 mg Ticagrelor (Brilinta) 90 mg PO BID [facility] Last Admin: 03/08/17 17:23 Dose: 90 mg - Labs Labs: 03/08/17 06:24 03/08/17 06:24 PT 10.0 SECONDS (9.7-12.2) 03/07/17 08:15 INR 0.9 03/07/17 08:15 APTT 31 SECONDS (21-34) 03/07/17 08:15 - Constitutional Appears: Non-toxic - Head Exam Head Exam: NORMAL INSPECTION - Eye Exam Eye Exam: Normal appearance - ENT Exam ENT Exam: Mucous Membranes Moist - Respiratory Exam Respiratory Exam: NORMAL BREATHING PATTERN - Cardiovascular Exam Cardiovascular Exam: REGULAR RHYTHM - GI/Abdominal Exam GI & Abdominal Exam: Normal Bowel Sounds - Rectal Exam Rectal Exam: Deferred - Extremities Exam Extremities Exam: Pedal Edema - Back Exam Back Exam: NORMAL INSPECTION - Neurological Exam Neurological Exam: Alert - Psychiatric Exam Psychiatric exam: Normal Affect - Skin Skin Exam: Normal Color Assessment and Plan (1) Acute ST-elevation myocardial infarction Assessment & Plan: s/p stent LAD. ASA/Brilinta. increase metoprolol. stable for transfer to telemetry. Status: Acute
--- NOTE | 2017-03-08 20:24 | CARDCATH ---
PROCEDURE DATE: 03/07/2017 PROCEDURE PERFORMED: Left heart catheterization, coronary angiography, left ventriculography, percut aneous coronary intervention of the mid left anterior descending artery. INDICATIONS: Acute anterior ST segment elevation myocardial infarction. HISTORY: The patient is a 56-year-old male who presents with an acute myocardial infarction. He was taken emergently to the cardiac catheterization laboratory. FINDINGS: LEFT MAIN: Normal. LEFT ANTERIOR DESCENDING ARTERY: 100% occlusion just after the first major diagonal branch. There i s SHARON-0 flow. Large thrombus is present. This is the culprit for the patient's acute myocardial in farction. The major diagonal branch has a 30% stenosis. Circumflex artery arises from the left main . There are minor irregularities of the vessel. RIGHT CORONARY ARTERY: Arises from the right sinus of Valsalva. This is a right dominant circulatio n. Minor luminal irregularities of the vessel. LEFT VENTRICLE: Mild left ventricular systolic dysfunction. Left ventricular ejection fraction is a pproximately 50%. There is mild anterolateral hypokinesis. INTERVENTION: The patient was anticoagulated with heparin to achieve a therapeutic activated clottin g time. Brilinta 180 mg loaded in the Emergency Room. A Whisper wire was used to cross the stenosis in the left anterior descending artery. Angioplasty of the distal segment of the mid vessel was per formed with a 2.5 mm x 12 balloon drug-eluting stent placement with the Xience 2.75 mm x 15 stent was deployed successfully. More proximal to this stent, a 3.5 mm x 23 mm stent was deployed successfull y. A 3.5 x 12 mm stent was deployed just proximal to the previously placed stent in an overlapping f ashion. Post-dilatation was performed with 4.0 x 8 mm noncompliant balloon. Final angiography reve aled excellent stent expansion. There is no evidence of perforation or dissection. The guidewire an d guiding catheter were removed. CONCLUSIONS: Successful drug-eluting stent placement of the mid left anterior descending artery (cul prit vessel). PLAN: The patient admitted to the intensive care unit. Aspirin and Brilinta therapy will be continu ed. Echocardiogram will be ordered. The patient is in critical condition. Sonny La MD cc: [id number] TT: 03/08/2017 20:23:43 jn
[2017-03-09 06:20] LABS: BASO # 0.1 K/uL (0.0-0.2); BASO % 0.9 % (0.0-2.0); EOS # 0.1 K/uL (0.0-0.7); EOS % 1.6 % (0.0-4.0); HEMATOCRIT 42.9 % (35.0-51.0); LYMPH # 2.2 K/uL (1.0-4.3); LYMPH % 26.9 % (20.0-40.0); MEAN CELL VOLUME 94.1 fL (80.0-94.0); MEAN CORPUSCULAR HEMOGLOBIN 31.9 pg (27.0-31.0); MEAN CORPUSCULAR HGB CONC 33.8 g/dL (33.0-37.0); MEAN PLATELET VOLUME 7.7 fL (7.2-11.7); MONO # 0.6 K/uL (0.0-0.8); MONO % 6.9 % (0.0-10.0); NRBC % 0.1 % (0.0-2.0); RED CELL DISTRIBUTION WIDTH 13.1 % (11.5-14.5); WHITE BLOOD COUNT 8.1 K/uL (4.8-10.8)
[2017-03-09 06:30] LABS: CHLORIDE 104 mmol/L (98-107); POTASSIUM 4.1 mmol/L (3.6-5.2); SODIUM 137 mmol/L (132-148)
[2017-03-09 06:32] LABS: ALB/GLOB RATIO 1.3 (1.0-2.1); AST/SGOT 111 U/L (17-59); BILIRUBIN,TOTAL 1.1 mg/dL (0.2-1.3); CARBON DIOXIDE 23 mmol/L (22-30); GFR AFRICAN-AMERICAN > 60; TOTAL PROTEIN 6.9 g/dL (6.3-8.3)
[2017-03-09 06:33] LABS: ALKALINE PHOSPHATASE 69 U/L (38-126); ALT/SGPT 87 U/L (21-72); BLOOD UREA NITROGEN 11 mg/dL (9-20); CALCIUM 8.5 mg/dl (8.6-10.4); GLUCOSE,RANDOM 97 mg/dL (75-110); PHOSPHOROUS 2.8 mg/dL (2.5-4.5)
--- NOTE | 2017-03-09 18:37 | CP.PCM.PN ---
Subjective - Date & Time of Evaluation Date of Evaluation: 03/09/17 Time of Evaluation: 18:30 - Subjective Subjective: no new complaints Objective - Vital Signs/Intake and Output Vital Signs (last 24 hours): Temp Pulse Resp BP Pulse Ox 97.6 F 83 26 H 149/91 H 96 03/09/17 00:00 03/09/17 02:00 03/09/17 16:31 03/09/17 02:00 03/09/17 16:31 Intake and Output: 03/09/17 03/09/17 06:59 18:59 Intake Total 465 Output Total 600 Balance -135 - Medications Medications: Current Medications Acetaminophen (Tylenol 325mg Tab) 650 mg PO Q6 PRN PRN Reason: Headache Last Admin: 03/08/17 05:16 Dose: 650 mg Aspirin (Ecotrin) [address] [facility] Last Admin: 03/09/17 10:35 Dose: 81 mg Famotidine (Pepcid) [address] [facility] Last Admin: 03/09/17 10:35 Dose: 20 mg Heparin Sodium (Porcine) (Heparin) 5,[address] [facility] Last Admin: 03/09/17 05:41 Dose: 5,000 units Lisinopril (Zestril) [address] [facility] Last Admin: 03/09/17 10:35 Dose: 10 mg Metoprolol Tartrate (Lopressor) [address] [facility] Last Admin: 03/09/17 10:35 Dose: 50 mg Rosuvastatin Calcium (Crestor) [address] [facility] Last Admin: 03/08/17 21:23 Dose: 10 mg Ticagrelor (Brilinta) [address] [facility] Last Admin: 03/09/17 10:35 Dose: 90 mg - Labs Labs: 03/09/17 06:15 03/09/17 06:15 PT 10.0 SECONDS (9.7-12.2) 03/07/17 08:15 INR 0.9 03/07/17 08:15 APTT 31 SECONDS (21-34) 03/07/17 08:15 - Constitutional Appears: Non-toxic - Head Exam Head Exam: NORMAL INSPECTION - Eye Exam Eye Exam: Normal appearance - ENT Exam ENT Exam: Mucous Membranes Moist - Neck Exam Neck Exam: Full ROM - Respiratory Exam Respiratory Exam: Decreased Breath Sounds - Cardiovascular Exam Cardiovascular Exam: REGULAR RHYTHM - GI/Abdominal Exam GI & Abdominal Exam: Normal Bowel Sounds - Rectal Exam Rectal Exam: Deferred - Extremities Exam Extremities Exam: Pedal Edema - Back Exam Back Exam: NORMAL INSPECTION - Neurological Exam Neurological Exam: Alert - Psychiatric Exam Psychiatric exam: Normal Affect - Skin Skin Exam: Normal Color Assessment and Plan (1) Acute ST-elevation myocardial infarction Assessment & Plan: continue dual antiplatelet therapy, betablcker. statin therapy. d/c planning. Status: Acute
--- NOTE | 2017-03-09 21:25 | CP.PCM.PN ---
<Moe Guido - Last Filed: 03/09/17 23:35> Subjective - Date & Time of Evaluation Date of Evaluation: 03/09/17 Time of Evaluation: 09:10 - Subjective Subjective: 56M with no sig pmh arrived in the ED with sudden onset of crushing, substernal chest pain that began 1 hour before admission. Troponins were positive x3 with a high of 131. EKG read in the ED was sinus bradycardia 57 bpm, normal axis, ST elevations in V2-V4 Chest XRAY showed cardiomegaly. Code heart was called and he was taken to the clinical laboratory manager for a STEMI. CATH showed LAD occlusion requiring 3 stents. He was then admitted to ICU for further observation. Today, pt. had no complaints and was feeling well. He denied headache, fevers, chills, difficulty breathing, nausea, vomiting, diarrhea, or any GI/ symptoms. Objective - Vital Signs/Intake and Output Vital Signs (last 24 hours): Temp Pulse Resp BP Pulse Ox 97.2 F L 83 26 H 149/91 H 100 03/09/17 16:30 03/09/17 02:00 03/09/17 16:31 03/09/17 02:00 03/09/17 19:40 - Medications Medications: Current Medications Acetaminophen (Tylenol 325mg Tab) 650 mg PO Q6 PRN PRN Reason: Headache Last Admin: 03/08/17 05:16 Dose: 650 mg Aspirin (Ecotrin) 81 mg PO DAILY [facility] Last Admin: 03/09/17 10:35 Dose: 81 mg Famotidine (Pepcid) 20 mg PO DAILY [facility] Last Admin: 03/09/17 10:35 Dose: 20 mg Heparin Sodium (Porcine) (Heparin) 5,000 units SC Q8 [facility] Last Admin: 03/09/17 14:39 Dose: 5,000 units Lisinopril (Zestril) 10 mg PO DAILY [facility] Last Admin: 03/09/17 10:35 Dose: 10 mg Metoprolol Tartrate (Lopressor) 50 mg PO BID [facility] Last Admin: 03/09/17 18:39 Dose: 50 mg Rosuvastatin Calcium (Crestor) 10 mg PO HS [facility] Last Admin: 03/08/17 21:23 Dose: 10 mg Ticagrelor (Brilinta) 90 mg PO BID [facility] Last Admin: 03/09/17 18:39 Dose: 90 mg - Labs Labs: 03/09/17 06:15 03/09/17 06:15 PT 10.0 SECONDS (9.7-12.2) 03/07/17 08:15 INR 0.9 03/07/17 08:15 APTT 31 SECONDS (21-34) 03/07/17 08:15 - Constitutional Appears: Non-toxic, No Acute Distress - Head Exam Head Exam: ATRAUMATIC, NORMAL INSPECTION, NORMOCEPHALIC - Eye Exam Eye Exam: EOMI, Normal appearance - ENT Exam ENT Exam: Mucous Membranes Moist, Normal Exam - Neck Exam Neck Exam: Full ROM, Normal Inspection. absent: Lymphadenopathy - Respiratory Exam Respiratory Exam: Clear to Ausculation Bilateral, NORMAL BREATHING PATTERN - Cardiovascular Exam Cardiovascular Exam: REGULAR RHYTHM, +S1, +S2. absent: Murmur - GI/Abdominal Exam GI & Abdominal Exam: Soft, Normal Bowel Sounds. absent: Tenderness - Extremities Exam Extremities Exam: Full ROM, Normal Capillary Refill, Normal Inspection. absent : Joint Swelling, Pedal Edema - Back Exam Back Exam: NORMAL INSPECTION - Neurological Exam Neurological Exam: Alert, Awake, CN II-XII Intact, Normal Gait, Oriented x3 - Psychiatric Exam Psychiatric exam: Normal Affect, Normal Mood - Skin Skin Exam: Dry, Intact, Normal Color, Warm Assessment and Plan - Assessment and Plan (Free Text) Plan: Chest pain * STEMI * EKG: showed ST elevations in II, III, aVL, V3-V6. 1st troponin 52.2. Patient went for cardiac cath showing LAD occlusion requiring 3 stents. * ASA 81mg PO daily, Brilinta 90 mg PO BID, Crestor 10mg PO QHS, Nitro Drip, NS @ 100cc/hr * ECHO EF 50%, normal size (please see full report) * ANA x3 positvie * HgA1C 5.4 * lipid panel TG, Cholesterol, LDL are elveated and HDL is low * T4 normal HTN * Started Lopressor 25mg PO BID, * Lisinopril 10mg PO daily Prophylactic Measures * GI PPX: Pepcid 20mg PO daily * DVT PPX: Heparin 5000 Q8H * Heart Healthy Diet <John Stahl - Last Filed: 04/15/17 14:36> Objective - Vital Signs/Intake and Output Vital Signs (last 24 hours): Temp Pulse Resp BP Pulse Ox 97.8 F 59 L 21 116/87 92 L 03/10/17 12:00 03/10/17 04:00 03/10/17 04:00 03/10/17 04:00 03/10/17 04:00 - Labs Labs: 03/10/17 06:36 03/10/17 06:36 PT 10.0 SECONDS (9.7-12.2) 03/07/17 08:15 INR 0.9 03/07/17 08:15 APTT 31 SECONDS (21-34) 03/07/17 08:15 Attending/Attestation - Attestation I have personally seen and examined this patient.: Yes I have fully participated in the care of the patient.: Yes I have reviewed all pertinent clinical information, including history, physical exam and plan: Yes Notes (Text): Patient seen at bedside Patient Seen and examined with the resident. Agree with the resident's evaluation, assessment and plan. Patient here with an ST elevation LA acute.
[2017-03-10 01:46] VITALS: RESP 21
[2017-03-10 06:22] VITALS: BP 116/87; PULSE 59; O2SAT 92
[2017-03-10 06:41] LABS: BASO # 0.1 K/uL (0.0-0.2); BASO % 0.7 % (0.0-2.0); EOS # 0.2 K/uL (0.0-0.7); EOS % 3.2 % (0.0-4.0); HEMATOCRIT 43.8 % (35.0-51.0); LYMPH # 2.2 K/uL (1.0-4.3); LYMPH % 30.1 % (20.0-40.0); MEAN CELL VOLUME 94.3 fL (80.0-94.0); MEAN CORPUSCULAR HEMOGLOBIN 31.7 pg (27.0-31.0); MEAN CORPUSCULAR HGB CONC 33.6 g/dL (33.0-37.0); MEAN PLATELET VOLUME 7.9 fL (7.2-11.7); MONO # 0.6 K/uL (0.0-0.8); MONO % 8.2 % (0.0-10.0); NRBC % 0.1 % (0.0-2.0); RED CELL DISTRIBUTION WIDTH 13.5 % (11.5-14.5); WHITE BLOOD COUNT 7.3 K/uL (4.8-10.8)
[2017-03-10 06:46] LABS: CHLORIDE 104 mmol/L (98-107)
[2017-03-10 06:47] LABS: SODIUM 138 mmol/L (132-148)
[2017-03-10 06:50] LABS: ALB/GLOB RATIO 1.4 (1.0-2.1); ALKALINE PHOSPHATASE 76 U/L (38-126); ALT/SGPT 99 U/L (21-72); AST/SGOT 87 U/L (17-59); BLOOD UREA NITROGEN 14 mg/dL (9-20); CARBON DIOXIDE 21 mmol/L (22-30); GFR AFRICAN-AMERICAN > 60; GLUCOSE,RANDOM 108 mg/dL (75-110)
[2017-03-10 06:51] LABS: CALCIUM 8.6 mg/dl (8.6-10.4)
[2017-03-10 14:19] VITALS: TEMP 97.8
--- NOTE | 2017-03-10 19:33 | CP.PCM.DIS ---
<GuidoLarryMoe - Last Filed: 03/12/17 00:32> Provider - Provider Date of Admission: 03/07/17 08:14 Attending physician: Timbo Chang MD Time Spent in preparation of Discharge (in minutes): 35 Diagnosis - Discharge Diagnosis (1) Acute ST-elevation myocardial infarction Status: Acute Hospital Course - Lab Results Lab Results: Micro Results 03/07/17 Unknown Naris MRSA Culture (Admit) - Final MRSA NOT DETECTED Most Recent Lab Values WBC 7.3 K/uL (4.8-10.8) 03/10/17 06:36 RBC 4.64 Mil/uL (4.40-5.90) 03/10/17 06:36 Hgb 14.7 g/dL (12.0-18.0) 03/10/17 06:36 Hct 43.8 % (35.0-51.0) 03/10/17 06:36 MCV 94.3 fL (80.0-94.0) H 03/10/17 06:36 MCH 31.7 pg (27.0-31.0) H 03/10/17 06:36 MCHC 33.6 g/dL (33.0-37.0) 03/10/17 06:36 RDW 13.5 % (11.5-14.5) 03/10/17 06:36 Plt Count 255 K/uL (130-400) 03/10/17 06:36 MPV 7.9 fL (7.2-11.7) 03/10/17 06:36 Neut % (Auto) 57.8 % (50.0-75.0) 03/10/17 06:36 Lymph % (Auto) 30.1 % (20.0-40.0) 03/10/17 06:36 Fallon % (Auto) 8.2 % (0.0-10.0) 03/10/17 06:36 Eos % (Auto) 3.2 % (0.0-4.0) 03/10/17 06:36 Baso % (Auto) 0.7 % (0.0-2.0) 03/10/17 06:36 Neut # 4.2 K/uL (1.8-7.0) 03/10/17 06:36 Lymph # 2.2 K/uL (1.0-4.3) 03/10/17 06:36 Fallon # 0.6 K/uL (0.0-0.8) 03/10/17 06:36 Eos # 0.2 K/uL (0.0-0.7) 03/10/17 06:36 Baso # 0.1 K/uL (0.0-0.2) 03/10/17 06:36 PT 10.0 SECONDS (9.7-12.2) 03/07/17 08:15 INR 0.9 03/07/17 08:15 APTT 31 SECONDS (21-34) 03/07/17 08:15 Sodium 138 mmol/L (132-148) 03/10/17 06:36 Potassium 4.0 mmol/L (3.6-5.2) 03/10/17 06:36 Chloride 104 mmol/L (98-107) 03/10/17 06:36 Carbon Dioxide 21 mmol/L (22-30) L 03/10/17 06:36 Anion Gap 17 (10-20) 03/10/17 06:36 BUN 14 mg/dL (9-20) 03/10/17 06:36 Creatinine 0.8 MG/DL (0.8-1.5) 03/10/17 06:36 Est GFR ( Amer) > 60 03/10/17 06:36 Est GFR (Non-Af Amer) > 60 03/10/17 06:36 POC Glucose (mg/dL) 179 mg/dL (65-110) H 03/07/17 08:09 Random Glucose 108 mg/dL (75-110) 03/10/17 06:36 Hemoglobin A1c 5.4 % (4.2-6.5) 03/08/17 06:24 Calcium 8.6 mg/dl (8.6-10.4) 03/10/17 06:36 Phosphorus 2.8 mg/dL (2.5-4.5) 03/09/17 06:15 Magnesium 2.0 mg/dL (1.6-2.3) 03/09/17 06:15 Total Bilirubin 1.0 mg/dL (0.2-1.3) 03/10/17 06:36 AST 87 U/L (17-59) H D 03/10/17 06:36 ALT 99 U/L (21-72) H 03/10/17 06:36 Alkaline Phosphatase 76 U/L (38-126) 03/10/17 06:36 Total Creatine Kinase 5055 U/L (55-170) H 03/07/17 18:24 CK-MB (Mass) 226 ng/mL (0.0-3.38) H 03/07/17 18:24 Troponin I 45.4000 ng/mL (0.00-0.120) H* 03/08/17 06:24 Troponin I, Quant 131.0000 ng/mL (0.00-0.120) H* 03/07/17 18:24 Total Protein 7.0 g/dL (6.3-8.3) 03/10/17 06:36 Albumin 4.1 g/dL (3.5-5.0) 03/10/17 06:36 Globulin 3.0 gm/dL (2.2-3.9) 03/10/17 06:36 Albumin/Globulin Ratio 1.4 (1.0-2.1) 03/10/17 06:36 Triglycerides 184 mg/dL (0-149) H 03/08/17 06:24 Cholesterol 216 mg/dL (0-199) H 03/08/17 06:24 LDL Cholesterol Direct 149 mg/dL (0-129) H 03/08/17 06:24 HDL Cholesterol 43 mg/dL (30-70) 03/08/17 06:24 Free T4 0.84 ng/dL (0.78-2.19) 03/08/17 06:24 Blood Type O POSITIVE 03/07/17 08:15 Antibody Screen Negative 03/07/17 08:15 - Hospital Course Hospital Course: 56M with no sig pmh arrived in the ED with sudden onset of crushing, substernal chest pain that began 1 hour before admission. Troponins were positive x3 with a high of 131. EKG read in the ED was sinus bradycardia 57 bpm, normal axis, ST elevations in V2-V4 Chest XRAY showed cardiomegaly. Code heart was called and he was taken to the blood bank laboratory technologist for a STEMI. CATH showed LAD occlusion requiring 3 GENA stents. He was then admitted to ICU for further observation. On day of discharge he had no complaints. This is a brief account of his stay. For more information, please refer to his chart. - Date & Time of H&P Date of H&P: 03/10/17 Time of H&P: 08:15 Discharge Exam - Head Exam Head Exam: ATRAUMATIC, NORMAL INSPECTION, NORMOCEPHALIC - Eye Exam Eye Exam: EOMI, Normal appearance Pupil Exam: NORMAL ACCOMODATION - ENT Exam ENT Exam: Mucous Membranes Moist - Neck Exam Neck exam: Full Rom - Respiratory Exam Respiratory Exam: Clear to PA & Lateral, NORMAL BREATHING PATTERN, UNREMARKABLE. absent: Wheezes, Respiratory Distress - Cardiovascular Exam Cardiovascular Exam: REGULAR RHYTHM, RRR, +S1, +S2. absent: JVD - GI/Abdominal Exam GI & Abdominal Exam: Normal Bowel Sounds, Soft, Unremarkable. absent: Tenderness - Extremities Exam Extremities exam: full ROM, normal capillary refill, pedal pulses present - Back Exam Back exam: FULL ROM. absent: CVA tenderness (L), CVA tenderness (R), rash noted , tenderness - Neurological Exam Neurological exam: Alert, CN II-XII Intact, Normal Gait, Oriented x3, Reflexes Normal - Psychiatric Exam Psychiatric exam: Normal Affect, Normal Mood - Skin Skin Exam: Dry, Intact, Normal Color, Warm Discharge Plan - Discharge Medications Prescriptions: Aspirin [Ecotrin] 81 mg PO DAILY #30 Atorvastatin [Lipitor] 40 mg PO QPM #30 tab Clopidogrel [Plavix] 75 mg PO DAILY #30 tab Lisinopril [Zestril] 10 mg PO DAILY #30 tab Metoprolol Tartrate [Lopressor] 50 mg PO BID #60 tab - Follow Up Plan Condition: GUARDED Disposition: HOME/ ROUTINE Additional Instructions: Pt is medically stable for discharge. Please follow up with your packaging associate in 1 week. Please follow up with the [facility] within 1 week. Thank you for allowing us to take part in your care. Referrals: Sonny La MD [Staff Provider] - <John Stahl - Last Filed: 04/18/17 11:55> Provider - Provider Date of Admission: 03/07/17 08:14 Attending physician: Timbo Chang MD Hospital Course - Lab Results Lab Results: Micro Results 03/07/17 Unknown Naris MRSA Culture (Admit) - Final MRSA NOT DETECTED Most Recent Lab Values WBC 7.3 K/uL (4.8-10.8) 03/10/17 06:36 RBC 4.64 Mil/uL (4.40-5.90) 03/10/17 06:36 Hgb 14.7 g/dL (12.0-18.0) 03/10/17 06:36 Hct 43.8 % (35.0-51.0) 03/10/17 06:36 MCV 94.3 fL (80.0-94.0) H 03/10/17 06:36 MCH 31.7 pg (27.0-31.0) H 03/10/17 06:36 MCHC 33.6 g/dL (33.0-37.0) 03/10/17 06:36 RDW 13.5 % (11.5-14.5) 03/10/17 06:36 Plt Count 255 K/uL (130-400) 03/10/17 06:36 MPV 7.9 fL (7.2-11.7) 03/10/17 06:36 Neut % (Auto) 57.8 % (50.0-75.0) 03/10/17 06:36 Lymph % (Auto) 30.1 % (20.0-40.0) 03/10/17 06:36 Fallon % (Auto) 8.2 % (0.0-10.0) 03/10/17 06:36 Eos % (Auto) 3.2 % (0.0-4.0) 03/10/17 06:36 Baso % (Auto) 0.7 % (0.0-2.0) 03/10/17 06:36 Neut # 4.2 K/uL (1.8-7.0) 03/10/17 06:36 Lymph # 2.2 K/uL (1.0-4.3) 03/10/17 06:36 Fallon # 0.6 K/uL (0.0-0.8) 03/10/17 06:36 Eos # 0.2 K/uL (0.0-0.7) 03/10/17 06:36 Baso # 0.1 K/uL (0.0-0.2) 03/10/17 06:36 PT 10.0 SECONDS (9.7-12.2) 03/07/17 08:15 INR 0.9 03/07/17 08:15 APTT 31 SECONDS (21-34) 03/07/17 08:15 Sodium 138 mmol/L (132-148) 03/10/17 06:36 Potassium 4.0 mmol/L (3.6-5.2) 03/10/17 06:36 Chloride 104 mmol/L (98-107) 03/10/17 06:36 Carbon Dioxide 21 mmol/L (22-30) L 03/10/17 06:36 Anion Gap 17 (10-20) 03/10/17 06:36 BUN 14 mg/dL (9-20) 03/10/17 06:36 Creatinine 0.8 MG/DL (0.8-1.5) 03/10/17 06:36 Est GFR ( Amer) > 60 03/10/17 06:36 Est GFR (Non-Af Amer) > 60 03/10/17 06:36 POC Glucose (mg/dL) 179 mg/dL (65-110) H 03/07/17 08:09 Random Glucose 108 mg/dL (75-110) 03/10/17 06:36 Hemoglobin A1c 5.4 % (4.2-6.5) 03/08/17 06:24 Calcium 8.6 mg/dl (8.6-10.4) 03/10/17 06:36 Phosphorus 2.8 mg/dL (2.5-4.5) 03/09/17 06:15 Magnesium 2.0 mg/dL (1.6-2.3) 03/09/17 06:15 Total Bilirubin 1.0 mg/dL (0.2-1.3) 03/10/17 06:36 AST 87 U/L (17-59) H D 03/10/17 06:36 ALT 99 U/L (21-72) H 03/10/17 06:36 Alkaline Phosphatase 76 U/L (38-126) 03/10/17 06:36 Total Creatine Kinase 5055 U/L (55-170) H 03/07/17 18:24 CK-MB (Mass) 226 ng/mL (0.0-3.38) H 03/07/17 18:24 Troponin I 45.4000 ng/mL (0.00-0.120) H* 03/08/17 06:24 Troponin I, Quant 131.0000 ng/mL (0.00-0.120) H* 03/07/17 18:24 Total Protein 7.0 g/dL (6.3-8.3) 03/10/17 06:36 Albumin 4.1 g/dL (3.5-5.0) 03/10/17 06:36 Globulin 3.0 gm/dL (2.2-3.9) 03/10/17 06:36 Albumin/Globulin Ratio 1.4 (1.0-2.1) 03/10/17 06:36 Triglycerides 184 mg/dL (0-149) H 03/08/17 06:24 Cholesterol 216 mg/dL (0-199) H 03/08/17 06:24 LDL Cholesterol Direct 149 mg/dL (0-129) H 03/08/17 06:24 HDL Cholesterol 43 mg/dL (30-70) 03/08/17 06:24 Free T4 0.84 ng/dL (0.78-2.19) 03/08/17 06:24 Blood Type O POSITIVE 03/07/17 08:15 Antibody Screen Negative 03/07/17 08:15 Attending/Attestation - Attestation I have personally seen and examined this patient.: Yes I have fully participated in the care of the patient.: Yes I have reviewed all pertinent clinical information, including history, physical exam and plan: Yes Notes (Text): Patient Seen and examined with the resident. Agree with the resident's evaluation, assessment and plan. Patient with acute ST- elevation Myocardial Infarction.
--- NOTE | 2017-03-12 10:07 | CARD ---
APPROVED REPORT EKG Measurement Heart [id number] <Conclusion> Sinus bradycardia Inferior infarct, age undetermined Anteroseptal infarct, age undetermined Abnormal ECG
--- NOTE | 2017-03-12 10:08 | CARD ---
APPROVED REPORT EKG Measurement Heart [id number] 170P35 [id number] <Conclusion> Sinus bradycardia Inferior infarct, age undetermined Anteroseptal infarct, age undetermined Abnormal ECG
--- NOTE | 2017-03-13 07:44 | CARD ---
APPROVED REPORT EKG Measurement Heart [id number] [place] 170P25 [id number] <Conclusion> Sinus bradycardia Inferior infarct, age undetermined Anteroseptal infarct, possibly acute Marked T wave abnormality, consider lateral ischemia ACUTE [place] / STEMI Abnormal ECG
--- NOTE | 2017-03-13 07:48 | CARD ---
APPROVED REPORT EKG Measurement Heart [id number] [place] 170P56 [id number] <Conclusion> Sinus rhythm with frequent premature ventricular complexes Septal infarct, age undetermined Inferior infarct, age undetermined Abnormal ECG
--- NOTE | 2017-03-13 07:49 | CARD ---
APPROVED REPORT EKG Measurement Heart [id number] [place] 160P42 [id number] <Conclusion> Sinus bradycardia Inferior infarct, age undetermined Anterior infarct, possibly acute ACUTE [place] / STEMI Abnormal ECG
== END 2017-03-10 15:57 | disposition home or self-care (01) | DRG 247 ==
LOC: C.ER 08:02 → C.9I 08:14
PROVIDERS: ADMIT Family Medicine; ATTEND Family Medicine
PROC: 4A023N7 Measurement of Cardiac Sampling and Pressure, Left Heart, Percutaneous Approach (ICD-10-PCS; principal; 2017-03-08)
PROC: 027036Z Dilation of Coronary Artery, One Artery with Three Drug-eluting Intraluminal Devices, Percutaneous Approach (ICD-10-PCS; 2017-03-08)
PROC: B2151ZZ Fluoroscopy of Left Heart using Low Osmolar Contrast (ICD-10-PCS; 2017-03-08)
PROC: B2111ZZ Fluoroscopy of Multiple Coronary Arteries using Low Osmolar Contrast (ICD-10-PCS; 2017-03-08)
DX: I21.3 ST elevation (STEMI) myocardial infarction of unspecified site (principal); I25.82 Chronic total occlusion of coronary artery; I25.10 Atherosclerotic heart disease of native coronary artery without angina pectoris; F17.210 Nicotine dependence, cigarettes, uncomplicated